=== PATIENT | male | born 1975 | race Caucasian/White ===

== ENCOUNTER 2023-01-10 05:35 | Outpatient (CLI) | payer BC, OTHER ==
[~2023-01-10] VITALS: Ht 177.8 cm; Wt 83.2 kg
[2023-01-11] MEDS ORDERED: ONDA4TAB11 SL (13:46)
[2023-01-11] MEDS ORDERED: METH54TA4 PO (13:46)
[2023-01-11] MEDS ORDERED: OMEP40CA6 PO (13:46)
== END 2023-01-11 14:02 | disposition home or self-care (01) ==
LOC: PREOP 05:35
PROVIDERS: ATTEND Surgery
DX: Z01.818 Encounter for other preprocedural examination (principal)

== ENCOUNTER → 2023-04-18 | Outpatient (CLI) | payer OTHER ==
[~2023-04-18] MED LIST: CATHETER FLUSH 10 ML SYR IVP PRN; METH54TA4 PO; OMEP40CA6 PO; ONDA4TAB11 SL
--- NOTE | 2023-04-18 09:35 | Diagnostic Imaging Report ---
Reason for exam: Nausea and vomiting. Comparison: None. Procedure: The patient was administered 5.28 millicuries of technetium 99m mebrofenin and 8 ounces of Ensure. A nuclear medicine hepatobiliary scan with ejection fraction was performed. Findings: There is prompt uptake and excretion of radiotracer by the liver. Activity is visible in the gallbladder by 10 minutes and the small bowel by 65 minutes. Ejection fraction of the gallbladder is calculated at 55% (normal >35%). The gallbladder visibly empties on the scans following the ingestion of Ensure. Impression: Normal hepatobiliary scan with normal gallbladder ejection fraction. Dictated by: Dictated on workstation # [id number]
== END ==
LOC: CARD 04-12 13:43
PROVIDERS: ATTEND Emergency Medicine
DX: R11.2 Nausea with vomiting, unspecified (principal)
CPT/HCPCS: 78227